=== PATIENT | male | born 2005 | race African-American/Black ===

== ENCOUNTER 2025-05-25 17:04 | Emergency (ER) | payer OTHER, SELFPAY ==
[2025-05-25 17:10] VITALS: BP 134/84; PULSE 72; RESP 16; TEMP 36.6; O2SAT 100; BMI 22.9
[2025-05-25] MEDS: LIDOCAINE 1% (PF) 5 ML INJ (21:29)
--- NOTE | 2025-05-25 22:08 | ED.WOUNDLAC ---
HPI - Wound/Laceration General Chief Complaint: Wound/Laceration Stated Complaint: finger injury lt hand Time Seen by Provider: 05/25/25 17:09 Source: patient Mode of arrival: Ambulatory History of Present Illness HPI narrative: 20-year-old male was a blade laceration over his right middle finger on the dorsal side near the fingernail but not involving the fingernail. Happened prior to arrival. Related Data Allergies Allergy/AdvReac Type Severity Reaction Status Date / Time No Known Drug Allergies Allergy Verified 05/25/25 17:10 Review of Systems Review of Systems ROS Unobtainable: All systems reviewed & are unremarkable except as noted in HPI and below Patient History Social History Smoking Status: Never smoker Smoking Status: Never smoker tobacco type: smokeless tobacco Exam Narrative Exam Narrative: General: Patient appears to be in no acute distress, acting appropriately Head: normocephalic, atraumatic, HEENT: Pupils equal round reactive, eyes tracking well, neck supple, no JVD Heart: regular rate and rhythm, no murmurs, rubs, or gallops heard Lungs: clear to auscultation, no adventitious sounds Abdomen: soft , nontender, nondistended, positive bowel sounds Neurological: no focal neurological signs, moving all extremities well, Alert and oriented x3, Psych: good judgment ,good insight, mood is normal. ext: rigth middle finger dorsal side shows 1-2cm laceration that is no longer actively bleeding, no involvement of the fingernail, no neurovascular signs. Initial Vital Signs Initial Vital Signs: Vital Signs Temperature 98 F 05/25/25 17:10 Pulse Rate 72 05/25/25 17:10 Respiratory Rate 16 05/25/25 17:10 Blood Pressure 134/84 05/25/25 17:10 Pulse Oximetry 100 05/25/25 17:10 Oxygen Delivery Method Room Air 05/25/25 17:10 Procedures Laceration Repair Laceration 1: Time of procedure: 21:30 Site: hand (right middle finger ) Side (If applicable): right Size (cm): 1.5 Description: clean Depth: simple, single layer Local Anesthetic: lidocaine 1% (digital nerve block ) Amount of anesthesia used (mL): 6 Skin layer closed with: nylon Skin layer suture size: 5-0 Number of sutures: 3 Technique: simple, interrupted Course Orders Ordered: Discontinued Medications Lidocaine HCl (Lidocaine 1% (Pf) 5 Ml) 5 ml INJ NOW ONE Stop: 05/25/25 21:26 Last Admin: 05/25/25 21:29 Dose: 5 ml Documented By: HNG Vital Signs Vital signs: Vital Signs - 8 hr 05/25/25 22:32 Pulse Rate 64 Respiratory Rate 18 Blood Pressure 114/69 Pulse Oximetry 100 Oxygen Delivery Method Room Air MDM - Wound/Laceration MDM Narrative Medical decision making narrative: Patient prepped and draped in sterile fashion and 3 simple interrupted sutures were placed on the dorsal side of his right middle finger. Patient tolerated procedure well with no complications. Advised to look out for allergies. will follow up in 1 week for suture removal. Discharge Plan Departure Patient Disposition: Home Clinical Impression: Laceration Instructions: DI for Laceration Repair Activity Restrictions/Additional Instructions: Keep area clean and dry for the next 24 hours. Do not wet the area for 24 hours but can shower afterwards. Return if any new signs of redness swelling, oozing, signs of infection. May return to your primary care physician in 1 week for suture removal. Referrals: Miscellaneous,Doctor, MD [Primary Care Provider, Medical] Stand Alone Forms: Patient Portal/API
[2025-05-25 22:32] VITALS: BP 114/69; PULSE 64; RESP 18; O2SAT 100
== END 2025-05-25 22:34 | disposition home or self-care (01) ==
PROVIDERS: Emergency Provider Family Medicine
DX: S61.212A Laceration without foreign body of right middle finger without damage to nail, initial encounter (principal); W26.8XXA Contact with other sharp object(s), not elsewhere classified, initial encounter; Y99.0 Civilian activity done for income or pay
CPT/HCPCS: 12001; 99283